=== PATIENT | female | born 2000 | race Caucasian/White ===

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

== ENCOUNTER 2020-12-07 02:57 | Emergency (ER) | payer MEDICAID, SELFPAY ==
[2020-12-07 03:10] VITALS: BP 122/74; PULSE 98; RESP 18; TEMP 36.7; O2SAT 98; BMI 33.6
--- NOTE | 2020-12-07 03:24 | CT_ITS ---
PROCEDURE INFORMATION: Exam: CT Abdomen And Pelvis With Contrast Exam date and time: 12/07/2020 3:24 AM Age: 20 years old Clinical indication: Abdominal tenderness; Prior surgery; Surgery date: 6+ months; Surgery type: Gb hernia; Patient HX: Llq pain TECHNIQUE: Imaging protocol: Computed tomography of the abdomen and pelvis with contrast. Radiation optimization: All CT scans at this facility use at least one of these dose optimization techniques: automated exposure control; mA and/or kV adjustment per patient size (includes targeted exams where dose is matched to clinical indication); or iterative reconstruction. Contrast material: ISOVUE; Contrast volume: 75 ml; Contrast route: IV; COMPARISON: ABDPELW CT ABD PELVIS W/ CONTRAST 04/30/2017 5:51 AM FINDINGS: Lungs: Small calcified and noncalcified pulmonary nodules in the right lung base measuring up to 4 mm, essentially unchanged for which no further follow-up should be necessary in a patient of this age. Liver: No acute findings. No mass. Gallbladder and bile ducts: Status post cholecystectomy. Pancreas: No acute findings, focal abnormality or ductal dilation. Spleen: No splenomegaly or focal abnormality. Adrenal glands: Normal. No mass. Kidneys and ureters: Kidneys enhance normally. No obstructive uropathy. Stomach and bowel: No obstruction. No mucosal thickening. Appendix: No evidence of appendicitis. Intraperitoneal space: No free air. No significant fluid collection. Vasculature: No abdominal aortic aneurysm. Lymph nodes: Calcified mediastinal lymph node. There are multiple nonspecific nonpathologic but prominent lymph nodes in the mesentery. There are no mesenteric lymph nodes of pathologic dimensions. Urinary bladder: Unremarkable as visualized. Reproductive: Unremarkable as visualized. Bones/joints: No acute fracture. Soft tissues: No acute findings. IMPRESSION: 1. No acute findings in the abdomen or pelvis. 2. Stable appearing pulmonary nodules in the lung bases. If the patient does not have known cancer, follow up should be based on clinical information because of the low risk of cancer in this age group. (Reference: Liliana) 3. Other chronic changes as described. REFERENCES: Liliana Flynn, et al. Guidelines for Management of Incidental Pulmonary Nodules Detected on CT Images: From the Fleischner So the ciety 2017. Radiology. 2017;284(1):228-243.
[2020-12-07 03:35] LABS: Microscopic, Urine URINE MICROSCOPIC (MICROSCOPIC)
[2020-12-07 03:38] LABS: Appearance,Urine CLEAR (Clear); Bilirubin,Urine Negative (Negative); Blood, Urine Negative (Negative); Color,Urine YELLOW (Yellow); Glucose,Urine (UA) 3+ (Negative); Ketones,Urine Negative (Negative); Leukocyte Esterase,Urine Negative (Negative); Nitrate,Urine Negative (Negative); PH,Urine 5.5 (5.0-8.5); Protein,Urine Negative (Negative); Urobilinogen,Urine 0.2 EU/dl (0.2)
[2020-12-07 03:42] LABS: Urine Pregnancy, HCG Qual. Negative (Negative)
[2020-12-07 03:53] LABS: Bacteria,Urine 1+ /lpf; Mucus,Urine 1+ /lpf
[2020-12-07 03:54] LABS: Basophils # 0.1 K/mm3 (0-0.2); Basophils % 0.8 % (0.1-2.0); Eosinophils # 0.2 K/mm3 (0.0-0.4); Eosinophils % 2.6 % (0.1-12.0); Hematocrit 44.8 % (37.0-47.0); Hemoglobin 14.9 g/dL (12.2-16.2); Lymphocytes # 3.6 K/mm3 (0.7-4.5); Lymphocytes % 38.8 % (10-50); Mean Corpuscular HGB Conc 33.3 g/dL (31.8-35.4); Mean Corpuscular Hemoglobin 27.5 pg (27.0-31.2); Mean Corpuscular Volume 82.6 fl (81-99); Mean Platelet Volume 6.5 fl (7.4-10.4); Monocytes # 0.4 K/mm3 (0.1-1.0); Monocytes % 4.7 % (1.7-9.3); Neutrophils # 4.9 K/mm3 (1.8-7.8); Neutrophils % 53.1 % (37.0-80.0); Platelet Count 354 K/mm3 (142-424); Red Blood Count 5.43 M/mm3 (4.20-5.40); Red Cell Distribution Width 12.3 % (11.5-17.5); White Blood Count 9.2 K/mm3 (4.8-10.8)
[2020-12-07 04:07] LABS: Alanine Aminotransferase 42 U/L (12-78); Albumin Level 4.4 g/dl (3.5-5.0); Albumin/Globulin Ratio 1.5 (1.1-1.8); Alkaline Phosphatase 88 U/L (38-126); Amylase 51 U/L (30-110); Anion Gap 11.8 mEq/L (5-15); Aspartate Amino Transferase 38 U/L (14-36); Bilirubin,Total 0.9 mg/dl (0.2-1.3); Blood Urea Nitrogen 6 mg/dl (7-17); Calcium 9.3 mg/dl (8.4-10.2); Carbon Dioxide 27 mmol/L (22.0-30.0); Chloride 100 mmol/L (98-107); Creatinine Clearance Estimated 300 mL/min (50-200); Estimated Glomerular Filt Rate 200 ml/min (>60); GFR (African American) 242 ML/MIN (>60); Lipase 89 U/L (23-300); Potassium 3.8 mmoL/L (3.5-5.1); Sodium 135 mmol/L (136-145); Total Protein,Serum 7.4 g/dl (6.3-8.2)
[2020-12-07 04:13] LABS: C-Reactive Protein 1.9 mg/L (0-4)
[2020-12-07 04:16] LABS: Glucose 437 mg/dl (74-100)
--- NOTE | 2020-12-07 04:17 | PC.NURSE ---
Karla in lab called with critical Glucose, name and confirmed. Dr Morgan notified
[2020-12-07 04:27] LABS: Procalcitonin 0.052 ng/mL (0.0-2.0)
[2020-12-07 04:31] LABS: Acetone, Serum (Rapid) None Detected (None Detect)
[2020-12-07 04:38] LABS: Erythrocyte Sedimentation Rate 20 mm/hr (0-20)
--- NOTE | 2020-12-07 04:47 | HMH.EDNVD ---
ED Disposition Clinical Impression: Abdominal pain Qualifiers: Abdominal location: left lower quadrant Qualified Code(s): R10.32 - Left lower quadrant pain Diabetes Qualifiers: Diabetes mellitus type: type 1 Diabetes mellitus complication status: with other specified complication Qualified Code(s): E10.69 - Type 1 diabetes mellitus with other specified complication Disposition: Home, Self-Care Condition on Discharge: Good Instructions: DI for Acute Abdominal Pain Additional Instructions: fluids and call pcp for follow up Referrals: Provider,Referral, MD [Primary Care Provider] - - Critical Care Critical Care Time: No Attestation: On 12/07/20, the high probability of a clinically significant, sudden or life threatening deterioration of the following system(s) required my full and direct attention, intervention and personal management. The time I documented below is in addition to time spent performing reported procedures but includes the following listed in this critical care notation. Medical Decision Making - Medical Records Medical records reviewed: Yes: I reviewed the patient's medical records. - Jose Inquiry Pt receiving controlled substance: No Vital Signs: 12/07/20 03:10 Temperature 98.1 F Temperature Source Oral Pulse Rate [Right] 98 H Respiratory Rate 18 Blood Pressure [Right Arm] 122/74 Blood Pressure Mean [Right Arm] 90 Blood Pressure Source [Right Arm] Automatic Cuff Blood Pressure Position [Right Arm] Sitting 02 Sat by Pulse Oximetry 98 Oxygen Delivery Method Room Air - Lab Data Lab results reviewed: Yes: I reviewed the patient's lab results. Lab Results 12/07/20 03:10: Urine Color Yellow, Urine Appearance Clear, Urine pH 5.5, Ur Specific [place] 1.010, Urine Protein Negative, Urine Glucose (UA) 3+, Urine Ketones Negative, Urine Blood Negative, Urine Nitrate Negative, Urine Bilirubin Negative, Urine Urobilinogen 0.2, Ur Leukocyte Esterase Negative, Urine WBC 3-5, Ur Squamous Epith Cells 5-10, Urine Bacteria 1+, Urine Mucus 1+ 12/07/20 03:10: Urine HCG, Qual Negative 12/07/20 03:35: WBC 9.2, RBC 5.43 H, Hgb 14.9, Hct 44.8, MCV 82.6, MCH 27.5, MCHC 33.3, RDW 12.3, Plt Count 354, MPV 6.5 L, Neut % (Auto) 53.1, Lymph % (Auto) 38.8, Pettis % (Auto) 4.7, Eos % (Auto) 2.6, Baso % (Auto) 0.8, Neut # (Auto) 4.9, Lymph # (Auto) 3.6, Pettis # (Auto) 0.4, Eos # (Auto) 0.2, Baso # (Auto) 0.1, ESR 20 12/07/20 03:35: Sodium 135 L, Potassium 3.8, Chloride 100, Carbon Dioxide 27, Anion Gap 11.8, BUN 6 L, Creatinine 0.40 L, Estimated Creat Clear 300, Estimated GFR 200, Est GFR ( Amer) 242, Glucose 437 H*, Calcium 9.3, Total Bilirubin 0.9, AST 38 H, ALT 42, Alkaline Phosphatase 88, C-Reactive Protein 1.9, Total Protein 7.4, Albumin 4.4, Globulin 3.0, Albumin/Globulin Ratio 1.5, Amylase 51, Lipase 89, Procalcitonin 0.052 12/07/20 03:35: Acetone Level None detected Result diagrams: 12/07/20 03:35 12/07/20 03:35 Orders (Tests/Meds): ED MEDICATIONS Generic Name Dose Route Start Last Admin Trade Name Freq PRN Reason Stop Dose Admin Lactated Ringer's 1,000 mls @ 999 mls/hr 12/07/20 04:00 12/07/20 03:50 Lactated Ringer's 1000 Ml Bag IV 12/07/20 05:00 999 mls/hr .Q1H1M PUNEET Administration Sodium Chloride 8 ml 12/07/20 03:24 Sodium Chloride 0.9% 10ml Vial IV 01/06/21 03:23 NEEDED PRN dilute pepcid Discontinued Medications Generic Name Dose Route Start Last Admin Trade Name Freq PRN Reason Stop Dose Admin Famotidine 20 mg 12/07/20 03:24 12/07/20 03:50 Famotidine 20mg/2ml Vial IV 12/07/20 03:25 20 mg ONCE ONE Administration Sodium Chloride 1,000 mls @ 999 mls/hr 12/07/20 03:30 12/07/20 03:49 Sod Chlor 0.9% 1000ml Bag IV 12/07/20 04:30 Not Given .Q1H1M PUNEET Insulin Human Regular 5 unit 12/07/20 04:36 12/07/20 04:39 Insulin Human Regular 100 Units/Ml 10ml Vial IVP 12/07/20 04:37 5 unit ONCE ONE Administration Iopamidol 75 ml 12/07/20
[2020-12-07 07:01] VITALS: BP 132/76; PULSE 78; RESP 16; TEMP 37.1; O2SAT 99
== END 2020-12-07 07:07 | disposition home or self-care (01) ==
PROVIDERS: Emergency Provider Emergency Medicine
DX: R10.32 Left lower quadrant pain (principal); E10.65 Type 1 diabetes mellitus with hyperglycemia; I10 Essential (primary) hypertension; F17.210 Nicotine dependence, cigarettes, uncomplicated
CPT/HCPCS: 74177; 80053; 81001; 81025; 82009; 82150; 83690; 84145; 85025; 85651; 86140; 96365; 96375; 99283; J2405; Q9967

== ENCOUNTER 2023-10-02 14:16 | Outpatient (CLI) | payer MEDICAID, SELFPAY ==
[2023-10-02 16:03] LABS: Free Thyroxine Index 1.8 ug/dL (5.93-13.13); T4 (Thyroxine) 6.8 ug/dl (5.53-11.0); Triiodothryronine (T3) Uptake 26 % (23.5-40.5)
[2023-10-04 14:04] LABS: Estradiol 29.5 pg/mL (.); FSH 7.5 mIU/mL (.); LH 4.3 mIU/mL (.)
[2023-10-15 14:59] LABS: Testosterone,Free 2.8 pg/mL (0.0-4.2)
== END 2023-10-02 23:59 | disposition home or self-care (01) ==
LOC: LAB 14:17
PROVIDERS: PCP Family Medicine; Visit Provider Nurse Practitioner Obstetrics & Gynecology
DX: E34.9 Endocrine disorder, unspecified (principal)
CPT/HCPCS: 36415; 82626; 82670; 83001; 83002; 84146; 84402; 84436; 84443; 84479

== ENCOUNTER 2023-10-03 14:10 | Outpatient (CLI) | payer MEDICAID, SELFPAY ==
--- NOTE | 2023-10-03 14:12 | US_ITS ---
PROCEDURE: US TRANSVAGINAL CLINICAL INDICATION: Irregular Bleeding COMPARISON: CT CT ABDOMEN PELVIS W CON from 12/07/2020 FINDINGS: Transvaginal sonographic images of the pelvis were obtained. UTERUS: 6.5cm x 4.0cmx 3.3cm anteverted with a combined endometrial thickness of 6.2mm. LEFT OVARY: 3.5cmx2.0cmx1.7cm with a volume of 6.2ml. Left ovary appears polycystic. There is a dominant follicle measuring 0.7 cm x 0.6 cm x 1.0 cm. Adjacent to the left ovary there is a multi cystic area measuring 2.4 cm x 1.9 cm x 2.0 cm. It has a heterogenous appearance. There is vascular flow around the periphery. RIGHT OVARY: 3.4cmx 1.5 cmx1.8 cm with a volume of 4.8ml. The right ovary appears polycystic. There is a dominant follicle measuring 1.2 cm x 0.8 cm x 0.7 cm. Both ovaries are seen and appear polycystic. Doppler flow to both ovaries are seen. There is trace fluid in the cul-de-sac. IMPRESSION: 1. Anteverted, small uterus. The endometrium is thin. 2. The right ovary appears polycystic and has a dominant follicle measuring 1.2 cm. 3. The left ovary appears polycystic. Adjacent to the left ovary is a multi cystic area that has a heterogenous appearance and measures 2.4 cm. 4. Would suggest repeat scan in 6-8 weeks. 5. There is trace fluid in the cul-de-sac. Dictated by: Jona Galaviz MD 10/03/2023 16:46 Jona Galaviz MD in [place] 10/03/2023 16:46
== END 2023-10-03 23:59 | disposition home or self-care (01) ==
LOC: RAD 14:10
PROVIDERS: PCP Family Medicine; Visit Provider Nurse Practitioner Obstetrics & Gynecology
DX: N92.6 Irregular menstruation, unspecified (principal); R10.32 Left lower quadrant pain
CPT/HCPCS: 76830

== ENCOUNTER 2023-11-28 12:43 | Outpatient (CLI) | payer MEDICAID, SELFPAY ==
--- NOTE | 2023-11-28 12:44 | US_ITS ---
PROCEDURE: US TRANSVAGINAL CLINICAL INDICATION: 6 week repeat US to f/u on Left ovarian Cyst COMPARISON: US US TRANSVAGINAL from 10/03/2023 FINDINGS: Transvaginal sonographic images of the pelvis were obtained. UTERUS: 8.4cm x 4.2cmx 3.4cm anteverted with a combined endometrial thickness of 6mm. LEFT OVARY: 3.9 cmx2.2cmx2.0cm with a volume of 8.9ml. Within the left ovary is a spongiform appearing cystic mass that measures 2.2 cm x 2.5 cm x 1.8 cm. Could represent a small dermoid cyst. This has not changed in size appreciably in the last 6 weeks. RIGHT OVARY: 4.1cmx 2.2cmx1.7 cm with a volume of 8.1ml. There are several small peripheral follicles in the right ovary. Both ovaries are seen and appear normal. Doppler flow to both ovaries are seen. There is no fluid in the cul-de-sac. IMPRESSION: 1. Anteverted uterus normal in shape and size. The endometrium is thin. 2. Right ovary appears normal with several small peripheral follicles. 3. Left ovary appears normal and within the left ovary is a spongiform mass measuring 2.5 cm. It has not changed appreciably in size in the last 6 weeks. I suspect it may be a small dermoid cyst. Suggest 3 month follow-up. 4. No fluid in the cul-de-sac. Dictated by: Jona Galaviz MD 11/28/2023 16:00 Jona Galaviz MD in [facility] 11/28/2023 16:00
== END 2023-11-28 23:59 | disposition home or self-care (01) ==
LOC: RAD 12:44
PROVIDERS: PCP Family Medicine; Visit Provider Nurse Practitioner Obstetrics & Gynecology
DX: N83.202 Unspecified ovarian cyst, left side (principal)
CPT/HCPCS: 76830

== ENCOUNTER 2023-12-08 20:33 | Emergency (ER) | payer MEDICAID, SELFPAY ==
[2023-12-08 20:40] VITALS: BP 153/87; PULSE 115; RESP 16; TEMP 37; O2SAT 99; BMI 34.9
[2023-12-08] MEDS: cephALEXin 500MG CAPSULE 500 MG PO (20:57)
[2023-12-08] MEDS: SULFA/TRIMETHOPRIM 1 TABLET 1 EACH PO (20:57)
[2023-12-08] MEDS: KETOROLAC 60MG/2ML VIAL 60 MG IM (20:57)
--- NOTE | 2023-12-08 20:58 | ED_ITS ---
Discharge Plan Disposition Patient Disposition: Home, Self-Care Condition: Good Prescriptions Prescriptions: New sulfamethoxazole-trimethoprim [Bactrim DS] 800-160 mg tablet 1 tab PO BID 10 Days Qty: 20 0RF cephalexin 500 mg capsule 500 mg PO BID 10 Days Qty: 20 0RF No Action pravastatin 20 mg tablet PO DAILY (DME) Dexcom G7 [employer] Misc See Rx Instructions .ROUTE .MEDSUPPLY Qty: 1 Rx Instructions: As directed (DME) OneTouch Verio test strips Strip See Rx Instructions .ROUTE .MEDSUPPLY Qty: 10 Rx Instructions: As directed (DME) Dexcom G7 Sensor Device See Rx Instructions .ROUTE .MEDSUPPLY Qty: 1 Rx Instructions: As directed (DME) pen needle, diabetic [BD Karlie 2nd Gen Pen Needle] 32 gauge x 5/32 needle See Rx Instructions .ROUTE .MEDSUPPLY Qty: 1200 Rx Instructions: As directed insulin glargine [Lantus Solostar U-100 Insulin] 100 unit/mL (3 mL) insulin pen SQ fluconazole 150 mg tablet PO DAILY insulin lispro 100 unit/mL insulin pen SQ insulin lispro 100/ML solution 5 units SQ TID Referrals Follow up/Referrals: Molly Turcios MD [Primary Care Provider] - See instructions Activity Restrictions/Add. Instructions Additional Instructions/Restrictions: Take Bactrim and Keflex as prescribed and you can also alternate Tylenol and Motrin every 4 hours for pain management. Keep the wound clean and dry during this time. Follow-up closely with your primary care provider for continued management and return for any new or worsening symptoms including but not limited to worsening pain, redness, fever or any other concerns arise. Clinical Impressions Clinical Impression: Paronychia of finger of left hand Instructions Patient Instructions: DI for Skin Abscess Print Language Print Language: Yakut Discharge ED Provider: Venessa Bedoya Adult HPI General Chief complaint: Skin/Abscess/Foreign Body Stated complaint: LT ring finger inf Time Seen by Provider: 12/08/23 20:36 Mode of Arrival: Family Vehicle Source of Information: Patient Limitations: No Limitations Description of Symptoms (Recalled from ER Triage Doc. by RN): 23 yo female presents with cc of left finger infection that she feels is stranding up her left arm and causing pain and swelling. IDDM, states her fsbs has been mostly normal. Patient is alert, oriented said she thinks this originated from cutting her fingernails. Has attempted to soak it at home, without success. History of Present Illness HPI narrative: Patient is a 23-year-old female with past medical history type 1 diabetes on insulin presenting with concern for left finger infection. She states that for the past several days she noticed an area on her left ring finger that she has been trying to treat at home and placing Bactine on it and keeping it bandaged however she noticed that the redness seem to be worse and it was draining some white fluid and she also noticed some tracking of the red down her finger and some tenderness in her left medial elbow. She denies any fevers or chills but she was concerned for evolving infection prompting presentation. She did take a dose at home of amoxicillin she had previously been prescribed for a tooth procedure. She thinks that the inciting event was from cutting her nails. Related Data Home Medications ?Medication ?Instructions ?Recorded ?Confirmed insulin lispro 100 unit/mL 5 units SQ TID DM 10/22/18 11/01/23 subcutaneous solution blood sugar diagnostic (OneTouch #10 ea 10/02/23 11/01/23 Verio test strips) blood-glucose meter,continuous #1 ea 10/02/23 11/01/23 (Dexcom G7 [employer]) blood-glucose sensor (Dexcom G7 #1 ea 10/02/23 11/01/23 Sensor device) fluconazole 150 mg tablet mg PO DAILY 10/02/23 11/01/23 insulin glargine 100 unit/mL (3 unit SQ 10/02/23 11/01/23 mL) subcutaneous pen (Lantus Solostar U-100 Insulin) insulin lispro 100 unit/mL SQ 10/02/23 11/01/23 subcutaneous pen pen needle, diabetic 32 gauge x #1,200 ea 10/02/23 11/01/23 (BD Karlie 2nd Gen Pen Needle) pravastatin 20 mg tablet mg PO DAILY 10/02/23 11/01/23 Previous Rx's ?Medication ?Instructions ?Recorded cephalexin 500 mg capsule 500 mg PO BID 10 days #20 caps 12/08/23 sulfamethoxazole 800 1 tab PO BID 10 days #20 tabs 12/08/23 mg-trimethoprim 160 mg tablet (Bactrim DS) Allergies Allergy/AdvReac Type Severity Reaction Status Date / Time No Known Allergies Allergy Verified 11/01/23 13:14 [facility] Disclaimer: The information contained in this section may have been updated after the patient was seen, as this information can be updated by other users. Medical History (Updated 12/08/23 @ 21:04 by Venessa Bedoya MD) Diabetes Obesity Dyspnea Atypical chest pain Surgical History (Updated 11/01/23 @ 13:19 by JULIANNA Akbar) History of tonsillectomy and adenoidectomy History of cholecystectomy Family History Other No significant family history Social History Smoking Status: Unknown if ever smoked alcohol intake: never current occupational status: employed Travel in the last 8 weeks: None household members: family housing: house current occupational exposures/hazards: No ROS Obtained: Yes Systems reviewed as appropriate & no additional complaints except as documented Physical Exam General General appearance: alert and in no apparent distress Respiratory Respiratory exam: Absent respiratory distress or accessory muscle use Cardiovascular Cardiovascular exam: Present regular rate and normal rhythm Extremities Exam Extremities exam: Present other (Left ring finger with paronychia to the dorsal lateral aspect with some drainage of purulent fluid but does feel fluctuant with very faint area of erythema tracking down dorsal finger, some palpable epitrochlear lymph nodes that are tender) Neurological Exam Neurological exam: Present alert and oriented X3 Medical Decision Making Medical Records Medical records reviewed: Yes I reviewed the patient's medical records. Jose Inquiry Pt receiving controlled substance: No Jose was queried for this patient: No Vital Signs: 12/08/23 20:40 Temperature 98.6 F Temperature Source Oral Pulse Rate [Right Brachial] 115 H Respiratory Rate 16 Blood Pressure [Right Arm] 153/87 H Blood Pressure Mean [Right Arm] 109 Blood Pressure Source [Right Arm] Automatic Cuff Blood Pressure Position [Right Arm] Sitting 02 Sat by Pulse Oximetry 99 Oxygen Delivery Method Room Air Orders (Tests/Meds): ED MEDICATIONS Discontinued Medications Generic Name Dose Route Start Last Admin Trade Name Freq PRN Reason Stop Dose Admin Cephalexin HCl 500 mg 12/08/23 20:46 Cephalexin 500mg Capsule PO 12/08/23 20:47 ONCE ONE Ketorolac Tromethamine 60 mg 12/08/23 20:46 Ketorolac 60mg/2ml Vial IM 12/08/23 20:47 ONCE ONE Trimethoprim/Sulfamethoxazole 1 each 12/08/23 20:46 Sulfa/Trimethoprim 1 Tablet PO 12/08/23 20:47 ONCE ONE Medical Decision Narrative: Patient is a 23-year-old female with past medical history of type 1 diabetes insulin-dependent presenting with concern for left finger infection that has been evolving over several days after she got her nail. She does appear to have a paronychia that has developed an infection over the dorsal lateral left ring finger, does have some very faint ecchymosis tracking down that digit and palpable epitrochlear lymph nodes. She is afebrile and otherwise hemodynamically stable and denies any fevers. Given symptoms and incompletely treated infection will incise the abscess and placed patient on course of Bactrim and Keflex to cover for MRSA infection as well. Patient tolerated the incision and drainage without difficulty and given first dose of Bactrim and Keflex while in the emergency department as well as a dose of Toradol and discussed alternating Tylenol and Motrin. Also discussed return precautions to which patient is agreeable. Discharged in stable condition. Procedures Abscess I/D Site: hand Side (if applicable): left Technique: incised with #11 blade Amount of fluid expressed (mL): 1.5 Irrigation: No Packing used?: none Critical Care Critical Care Time Critical Care Time: No
[2023-12-08 21:07] VITALS: BP 138/79; PULSE 103; RESP 14; TEMP 36.8; O2SAT 95
== END 2023-12-08 21:10 | disposition home or self-care (01) ==
PROVIDERS: Emergency Provider Emergency Medicine; PCP Family Medicine
DX: L03.012 Cellulitis of left finger (principal); E10.9 Type 1 diabetes mellitus without complications; Z79.4 Long term (current) use of insulin
CPT/HCPCS: 96372; 99283; J1885

== ENCOUNTER 2024-06-12 13:45 | Outpatient (CLI) | payer MEDICAID, SELFPAY ==
--- NOTE | 2024-06-12 13:46 | US_ITS ---
PROCEDURE: US TRANSVAGINAL CLINICAL INDICATION: 3 month f/u to ovarian cyst COMPARISON: US US TRANSVAGINAL from 10/03/2023 US US TRANSVAGINAL from 11/28/2023 FINDINGS: Transvaginal sonographic images of the pelvis were obtained. UTERUS: 7.9 cm x 4.2cmx 3.4cm anteverted with a combined endometrial thickness of 3.5mm. LEFT OVARY: 3.8 cmx2.4cmx2.7cm with a volume of 12.5ml. There continues to be a spongiform appearing area at the superior aspect of the left ovary. It measures 2.4 cm x 1.8 cm. It has a similar appearance from her last ultrasound in November of 2023. Would suggest repeat ultrasound again in 6 months time. RIGHT OVARY: 1.6 cmx 1.4cmx1.4cm with a volume of 1.6ml. Both ovaries are seen and appear normal. Doppler flow to both ovaries are seen. There is no fluid in the cul-de-sac. IMPRESSION: 1. Anteverted uterus normal in shape and size. The endometrium is thin. 2. There continues to be a small spongiform area at the superior aspect of the left ovary measuring 2.4 cm. It is similar in appearance and size from 6 months ago. Would just repeat another ultrasound in 6 months to confirm its stability. 3. The right ovary is seen and appears normal. 4. There is no fluid in the cul-de-sac today. Dictated by: Jona Galaviz MD 06/13/2024 16:34 Jona Galaviz MD in [place] 06/13/2024 16:34
== END 2024-06-12 23:59 | disposition home or self-care (01) ==
LOC: RAD 13:46
PROVIDERS: PCP Family Medicine; Visit Provider Nurse Practitioner Obstetrics & Gynecology
DX: R10.2 Pelvic and perineal pain (principal)
CPT/HCPCS: 76830

== ENCOUNTER 2024-07-16 14:34 | Outpatient (CLI) | payer MEDICAID, SELFPAY ==
--- NOTE | 2024-07-16 14:37 | XR_ITS ---
FINAL REPORT CLINICAL HISTORY: Abdominal Pain/Pelvic Pain COMPARISON: None FINDINGS: The lungs are grossly clear. There is no evidence of effusion, pneumothorax or other significant pleural disease. The mediastinum is unremarkable. The heart size is normal. The abdomen demonstrates numerous air-fluid levels within the colon which can be seen with enteritis or colitis. There is no evidence of obstruction. There is no free air. The patient is status post cholecystectomy. No abdominal radiopacities are seen in the abdomen. IMPRESSION: Liquid stool throughout the colon which may be seen with enteritis or colitis. Reviewed, Interpreted and Dictated by Iggy Banuelos MD Transcribed by Martha Reed Authenticated and [facility]
== END 2024-07-16 23:59 | disposition home or self-care (01) ==
LOC: RAD 14:35
PROVIDERS: PCP Family Medicine; Visit Provider Nurse Practitioner Obstetrics & Gynecology
DX: R10.32 Left lower quadrant pain (principal)
CPT/HCPCS: 74021